=== PATIENT | male | born 1970 | race Caucasian/White ===

== ENCOUNTER 2023-05-25 07:59 | Outpatient (CLI) | payer BC, SELFPAY ==
--- NOTE | ~2023-05-25 | CT_ITS ---
EXAMINATION: CT abdomen pelvis wo/w con DATE: 05/25/2023 09:02 INDICATION: Gross hematuria TECHNIQUE: Computed tomography (CT) of the abdomen and pelvis was performed without intravenous contr ast. CT of the abdomen and pelvis was then performed with a total of 130 mL Omnipaque-350 intravenous contrast using a double-bolus technique for simultaneous opacification of the renal parenchyma and r enal collecting system. Automated exposure control and iterative reconstruction technique were employ ed. The dose-length product was 3325.99 mGy-cm. COMPARISON: None FINDINGS: Lung bases are clear. Heart size is normal. No pericardial or pleural effusion. Large geographic tamanna on of subtle diffuse hepatic steatosis in the right hepatic lobe. Gallbladder, spleen, pancreas and b ilateral adrenal glands are normal. Punctate focus of calcification at the periphery of a 1 cm nonenh ancing left renal cyst. No other calcifications at the bilateral kidneys are along the bilateral uret ers. The left ureter and proximal to mid right ureter are opacified on the postcontrast images with n o evident urothelial irregularities. Additional dependently layering excreted contrast is seen within the bladder which is normal aside from the postoperative change of a prior prostatectomy. Bowels inc luding the appendix are normal. No free intraperitoneal gas or fluid. No pathologically enlarged abdo chan or pelvic lymphadenopathy. Mild thoracic and lumbar spondylosis. IMPRESSION: 1. Punctate calcification at the left kidney which appears more likely to represent rim calcification along a 1 cm cyst rather than a renal stone. Otherwise normal bilateral kidneys and ureters with no other evident urolithiasis. 2. Hepatic steatosis. Reviewed, dictated and finalized at location [facility] [employer] IMPRESSION: 1. Punctate calcification at the left kidney which appears more likely to repre sent rim calcification along a 1 cm cyst rather than a renal stone. Otherwise n ormal bilateral kidneys and ureters with no other evident urolithiasis. 2. Hepatic steatosis.
[2023-05-25 08:42] LABS: Estimated Glomerular Filt Rate > 60
== END 2023-05-25 08:00 | disposition home or self-care (01) ==
LOC: ANHIMG 08:05
PROVIDERS: PCP Internal Medicine; Visit Provider Urology
DX: R31.0 Gross hematuria (principal); N20.0 Calculus of kidney
CPT/HCPCS: 74178; Q9967